=== PATIENT | female | born 1990 | race Two or more races ===

== ENCOUNTER 2020-12-24 14:47 | Outpatient (CLI) | payer OTHER | END 2020-12-24 15:02 | disposition home or self-care (01) | LOC: RAD 14:47 | PROVIDERS: ATTEND Specialist | DX: E03.8 Other specified hypothyroidism (principal) ==

== ENCOUNTER → 2023-01-04 | Emergency (ER) | payer OTHER ==
[~2023-01-04] VITALS: Ht 157.5 cm; Wt 68.0 kg
== END | disposition home or self-care (01) ==
LOC: ER 20:46
DX: M79.671 Pain in right foot (principal); W18.30XA Fall on same level, unspecified, initial encounter; Y93.9 Activity, unspecified; Y92.9 Unspecified place or not applicable; Y99.9 Unspecified external cause status